=== PATIENT | male | born 1975 | race Caucasian/White ===

== ENCOUNTER → 2017-09-22 | Outpatient (CLI) | payer OTHER ==
--- NOTE | 2017-09-22 16:08 | US ---
EXAMINATION TYPE: US kidneys/renal and bladder DATE OF EXAM: 09/22/2017 COMPARISON: CT aorta: Aorta October 10, 2015 CLINICAL HISTORY: R80.9 protein urea unspecified; diabetic EXAM MEASUREMENTS: Right Kidney: 13.1 x 7.8 x 5.9 cm Left Kidney: 13.6 x 6.5 x 6.8 cm Post Void Residual Volume: 1.2 mL Right Kidney: No hydronephrosis or masses seen Left Kidney: No hydronephrosis or masses seen Bladder: not fully distended Bilateral Jets seen: Yes Normal Post Void Residual: Yes There is no evidence for hydronephrosis at this point in time. No nephrolithiasis is seen. No sukumar s are identified. The urinary bladder is not greatly distended and is thought suboptimally evaluated . Bilateral ureteral jets are however seen. IMPRESSION: No hydronephrosis is evident bilaterally.
== END | disposition home or self-care (01) ==
LOC: RADUSWWP 14:57
PROVIDERS: ATTEND Family Medicine
DX: R80.9 Proteinuria, unspecified (principal)
CPT/HCPCS: 76770

== ENCOUNTER → 2017-10-30 | Outpatient (CLI) | payer OTHER ==
--- NOTE | 2017-10-30 14:27 | PN ---
PROGRESS NOTE DATE OF SERVICE: 10/30/2017 42-year-old gentleman who has been followed in the Sleep Center for treatment of obstructive sleep apnea-hypopnea syndrome. Patient continued to use his CPAP equipment without significant problem every night for the whole night. No snoring with the machine. [place] Sleepiness Scale today is 7. I checked patient's CPAP unit. CPAP pressure is 15 cm of water. REM time in automatic regimen, usage is 100% of the time more than 4 hours. Average usage is 8.8 hours. Leak is 20 L/minute which is acceptable. Apnea-hypopnea index reading for the last month is only 0.9, which is perfect. MEDICATIONS: Metformin, Apidra, Lantus, Sertraline, Atenolol, hydrochlorothiazide, amlodipine, Glimepiride. Norvasc. Zoloft occasionally. PHYSICAL EXAM: Patient in no distress. BP 158/88, HR 56, RR 16, height 5 feet 11 inches. Weight 348, which is the same weight as during previous visit 1-1/2 year ago, BMI 48.5, temperature 98.5, oxygen saturation room air 98%. Oropharynx extremely low position of soft palate. ABDOMEN: Obese. Neck Supple, no JVD. Thyroid is not palpable. LUNGS Clear to percussion and to auscultation. Good air exchange. No wheezing or rhonchi. HEART S1, S2 regular. No murmurs, gallops, or rubs. ABDOMEN: Obese. Soft and nontender. Bowel sounds are present. No organomegaly appreciated. EXTREMITIES No clubbing or cyanosis. MOTOR BLOCK MECHANIC Awake, alert, and oriented X3. Cranial nerves 2 to 7 intact. There is no fasciculation or atrophy. noted. No focal deficits observed. IMPRESSION: 1. Obstructive sleep apnea-hypopnea syndrome, on full control with CPAP at 15 cm of water. The patient demonstrated 100% compliance with treatment benefitting from treatment. 2. Obesity. 3. Diabetes mellitus. 4. Hypertension. 5. Hyperlipidemia. 6. History of depression. 7. History of anxiety. PLAN: 1. Patient will continue to use CPAP equipment every night for the whole night. 2. Aggressive losing weight program. 3. Sleep hygiene in time for at least 8 hours. 4. No driving if feeling sleepiness. 5. Prescription for all necessary CPAP supplies including nasal mask, tube, filters. Thank you very much for allowing me to participate in management of your patient. Sincerely, Followup visit in 1 year or earlier if patient has any problems. Jersey Aguayo MD, PhD, FAASM Diplomat of [place] [employer] [place] [employer] Outside Maintenance Worker of [facility] [place] MMODL / ANANDA: [id number] /
== END | disposition home or self-care (01) ==
LOC: SLEEP 13:12
PROVIDERS: ATTEND Internal Medicine
DX: G47.33 Obstructive sleep apnea (adult) (pediatric) (principal); E66.9 Obesity, unspecified; E11.9 Type 2 diabetes mellitus without complications; I10 Essential (primary) hypertension; E78.5 Hyperlipidemia, unspecified; Z86.59 Personal history of other mental and behavioral disorders; Z79.84 Long term (current) use of oral hypoglycemic drugs; Z79.899 Other long term (current) drug therapy; Z99.89 Dependence on other enabling machines and devices

== ENCOUNTER → 2018-02-16 | Outpatient (CLI) | payer OTHER ==
--- NOTE | 2018-02-17 10:42 | ECHOF ---
Referral Reason:I77.810 Thoracic aortic ectasia MEASUREMENTS -------- HEIGHT: 182.9 cm WEIGHT: 149.7 kg BP: RVIDd: 3.7 cm (< 3.3) IVSd: 1.3 cm (0.6 - 1.1) LVIDd: 5.4 cm (3.9 - 5.3) LVPWd: 1.3 cm (0.6 - 1.1) IVSs: 2.0 cm LVIDs: 2.5 cm LVPWs: 2.0 cm LAESV Index (A-L): 30.99 ml/m Ao Diam: 4.2 cm (2.0 - 3.7) AV Cusp: 2.5 cm (1.5 - 2.6) LA Diam: 3.8 cm (2.7 - 3.8) MV E Kenton: 1.09 m/s MV DecT: 270 ms MV A Kenton: 0.76 m/s MV E/A Ratio: 1.44 RAP: 5.00 mmHg RVSP: 14.84 mmHg FINDINGS -------- Resting bradycardia (HR<60bpm). This was a technically adequate study. The left ventricular size is normal. There is borderline concentric left ventricular hypertrophy. Overall left ventricular systolic function is normal with, an EF between 55 - 60 %. The right ventricle is mildly enlarged. LA is midly dilated 29-33ml/m2. RA appears enlarged. There is mild aortic valve sclerosis. There is no evidence of aortic regurgitation. There is no e vidence of aortic stenosis. The mitral valve leaflets are mildly thickened. There is trace mitral regurgitation. Trace tricuspid regurgitation present. Right ventricular systolic pressure is normal at < 35 mmHg. There is no evidence of pulmonary hypertension. The pulmonic valve was not well visualized. The aortic root is mildy dilated, up to 3.9 cm. IVC Not well visulized. There is no pericardial effusion. CONCLUSIONS -------- 1. Resting bradycardia (HR<60bpm). 2. This was a technically adequate study. 3. The left ventricular size is normal. 4. There is borderline concentric left ventricular hypertrophy. 5. Overall left ventricular systolic function is normal with, an EF between 55 - 60 %. 6. The right ventricle is mildly enlarged. 7. LA is midly dilated 29-33ml/m2. 8. RA appears enlarged. 9. There is mild aortic valve sclerosis. 10. The mitral valve leaflets are mildly thickened. 11. There is trace mitral regurgitation. 12. Trace tricuspid regurgitation present. 13. Right ventricular systolic pressure is normal at < 35 mmHg. 14. There is no evidence of pulmonary hypertension. 15. The pulmonic valve was not well visualized. 16. The aortic root is mildy dilated, up to 3.9 cm. 17. IVC Not well visulized. 18. There is no pericardial effusion. REAL ESTATE RENTAL AGENT: Cm Ortega RDCS
== END | disposition home or self-care (01) ==
LOC: RADECHMAIN 15:06
PROVIDERS: ATTEND Internal Medicine Interventional Cardiology
DX: I08.0 Rheumatic disorders of both mitral and aortic valves (principal); I77.810 Thoracic aortic ectasia
CPT/HCPCS: 93306

== ENCOUNTER → 2018-03-19 | Outpatient (CLI) | payer OTHER ==
[2018-03-19 17:24] LABS: HCT 43.2 % (39.0-53.0); HGB 14.5 gm/dL (13.0-17.5); MCH 27.5 pg (25.0-35.0); MCHC 33.6 g/dL (31.0-37.0); MCV 81.9 fL (80.0-100.0); Mean Platelet Volume 6.6; Platelet Count 260 k/uL (150-450); RBC 5.28 m/uL (4.30-5.90); RDW 13.6 % (11.5-15.5); WBC 7.2 k/uL (3.8-10.6)
[2018-03-19 17:26] LABS: Appearance,Urine Clear (Clear); Bilirubin,Urine Negative (Negative); Blood,Urine Negative (Negative); Color,Urine Yellow; Glucose,Urine (UA) 1+ (Negative); Ketones,Urine Negative (Negative); Leukocyte Esterase,Urine Negative (Negative); Mucus,Urine Rare /hpf; Nitrite,Urine Negative (Negative); Protein,Urine 3+ (Negative); RBC,Urine <1 /hpf (0-5); Specific Gravity,Urine 1.017 (1.001-1.035); Urobilinogen,Urine <2.0 mg/dL (<2.0); WBC,Urine 1 /hpf (0-5)
[2018-03-19 17:33] LABS: Albumin 4.5 g/dL (3.5-5.0); Calcium 10.2 mg/dL (8.4-10.2); Magnesium 1.9 mg/dL (1.6-2.3); Phosphorus 3.8 mg/dL (2.5-4.5); Potassium 4.8 mmol/L (3.5-5.1); Uric Acid 5.5 mg/dL (3.5-8.5)
[2018-03-20 02:05] LABS: Hemoglobin A1C 8.4 % (4.0-6.0)
== END | disposition home or self-care (01) ==
LOC: LABWHC1 16:58
PROVIDERS: ATTEND Nurse Practitioner Family
DX: E11.22 Type 2 diabetes mellitus with diabetic chronic kidney disease (principal); N18.3 Chronic kidney disease, stage 3 (moderate)
CPT/HCPCS: 36415; 80048; 81001; 82040; 83036; 83735; 84100; 84550; 85027

== ENCOUNTER → 2018-04-04 | Outpatient (CLI) | payer OTHER ==
[2018-04-04 11:51] LABS: Basophils # (A) 0.1 k/uL (0-0.2); Basophils % (A) 1 %; Eosinophils # (A) 0.4 k/uL (0-0.7); Eosinophils % (A) 6 %; HGB 14.4 gm/dL (13.0-17.5); Lymphocytes # (A) 1.7 k/uL (1.0-4.8); Lymphocytes % (A) 25 %; MCHC 33.5 g/dL (31.0-37.0); MCV 83.6 fL (80.0-100.0); Monocytes # (A) 0.4 k/uL (0-1.0); Monocytes % (A) 6 %; Neutrophils # (A) 3.9 k/uL (1.3-7.7); Neutrophils % (A) 60 %; Platelet Count 225 k/uL (150-450); RBC 5.15 m/uL (4.30-5.90); RDW 13.9 % (11.5-15.5); WBC 6.6 k/uL (3.8-10.6)
[2018-04-04 12:02] LABS: Potassium 4.7 mmol/L (3.5-5.1)
[2018-04-04 12:15] LABS: INR 1.1 (<1.2); Prothrombin Time 10.4 sec (9.0-12.0)
== END | disposition home or self-care (01) ==
LOC: LABWHC1 11:19
PROVIDERS: ATTEND Internal Medicine
DX: R80.9 Proteinuria, unspecified (principal)
CPT/HCPCS: 36415; 80051; 82565; 84520; 85025; 85610; 85730

== ENCOUNTER → 2018-04-07 | Day surgery (SDC) | payer OTHER ==
[2018-04-07 09:33] VITALS: TEMP 98.4
[2018-04-07 09:39] LABS: Mean Platelet Volume 6.4; Platelet Count 225 k/uL (150-450)
[2018-04-07 09:51] LABS: INR 1.1 (<1.2); Prothrombin Time 10.4 sec (9.0-12.0)
[2018-04-07 12:06] VITALS: RESP 16
[2018-04-07 14:01] VITALS: PULSE 52
--- NOTE | 2018-04-07 14:01 | CT ---
DATE OF EXAM: 04/07/2018 COMPARISON: NONE CT DLP: 1362 mGycm HISTORY: Proteinuria PROCEDURE: Maximal barrier technique was utilized. After informed consent, the skin overlying a suit able path to the left kidney was localized using CT guidance, the skin was prepped and draped. Lidoc lilliana was used for local anesthesia. A skin santiago made with a scalpel. Using CT guidance, a 17-gauge needle was advanced into in position at the lateral and inferior cortex of the left kidney where coax ial placement of an 18-gauge needle was used and core biopsy obtained. 4 passes made in total. Hemo stasis was achieved. There was no immediate complication and patient remained in stable condition. Specimen submitted to Pathology. IMPRESSION: Status post CT guided core biopsy of left renal cortex, pathology pending. This procedur e performed by the undersigned.
[2018-04-07 14:45] VITALS: BP 133/75
== END ==
LOC: RADPROMAIN 08:53
PROVIDERS: ATTEND Internal Medicine Nephrology
DX: E11.21 Type 2 diabetes mellitus with diabetic nephropathy (principal); N26.9 Renal sclerosis, unspecified; I12.9 Hypertensive chronic kidney disease with stage 1 through stage 4 chronic kidney disease, or unspecified chronic kidney disease; E11.22 Type 2 diabetes mellitus with diabetic chronic kidney disease; N18.9 Chronic kidney disease, unspecified
CPT/HCPCS: 36415; 77012; 85049; 85610; 86850; 86900; 86901

== ENCOUNTER → 2018-04-20 | Outpatient (CLI) | payer OTHER ==
[2018-04-20 14:42] LABS: HCT 42.2 % (39.0-53.0); MCH 27.9 pg (25.0-35.0); MCHC 33.1 g/dL (31.0-37.0); MCV 84.3 fL (80.0-100.0); Platelet Count 264 k/uL (150-450); RBC 5.01 m/uL (4.30-5.90); WBC 6.9 k/uL (3.8-10.6)
[2018-04-20 14:49] LABS: Appearance,Urine Clear (Clear); Bilirubin,Urine Negative (Negative); Blood,Urine Negative (Negative); Color,Urine Yellow; Glucose,Urine (UA) Negative (Negative); Hyaline Casts,Urine 1 /lpf (0-2); Ketones,Urine Negative (Negative); Leukocyte Esterase,Urine Negative (Negative); Mucus,Urine Rare /hpf; Nitrite,Urine Negative (Negative); Protein,Urine 3+ (Negative); RBC,Urine 1 /hpf (0-5); Specific Gravity,Urine 1.018 (1.001-1.035); Squamous Epithelial Cell,Urine <1 /hpf (0-4); Urobilinogen,Urine <2.0 mg/dL (<2.0); WBC,Urine 1 /hpf (0-5)
[2018-04-20 14:57] LABS: Albumin 4.6 g/dL (3.5-5.0); Calcium 10.1 mg/dL (8.4-10.2); Magnesium 1.8 mg/dL (1.6-2.3); Phosphorus 3.8 mg/dL (2.5-4.5); Potassium 4.7 mmol/L (3.5-5.1); Uric Acid 5.8 mg/dL (3.5-8.5)
[2018-04-20 19:23] LABS: Vitamin D 25 Hydroxy 34.4 ng/mL (30.0-100.0)
[2018-04-20 19:59] LABS: Parathyroid Hormone Intact 28.2 pg/mL (14.0-72.0)
== END ==
LOC: LABWHC1 14:17
PROVIDERS: ATTEND Nurse Practitioner Family
DX: E11.22 Type 2 diabetes mellitus with diabetic chronic kidney disease (principal); N18.3 Chronic kidney disease, stage 3 (moderate); E55.9 Vitamin D deficiency, unspecified; N25.81 Secondary hyperparathyroidism of renal origin; N39.0 Urinary tract infection, site not specified; M10.9 Gout, unspecified
CPT/HCPCS: 36415; 80048; 81001; 82040; 82306; 83036; 83735; 83970; 84100; 84550; 85027

== ENCOUNTER 2018-06-09 06:43 | Day surgery (SDC) | payer OTHER ==
[2018-06-04 14:17] VITALS: BMI 46.9
[~2018-06-09 06:43] MED LIST: LACTATED RINGERS 1,000 ML IV SCH
[2018-06-09 07:24] VITALS: RESP 16; TEMP 97
[2018-06-09 07:31] LABS: Glucose,Whole Blood 82 mg/dL (75-99)
[2018-06-09] MEDS ORDERED: LIDOCAINE 1% 20 ML VIAL (10MG/ML) FOR IV START INTRADERMA ONE (07:39)
[2018-06-09] MEDS ORDERED: PROPOFOL 10 MG/ML 20 ML VIAL IV ONE (07:51)
[2018-06-09] MEDS ORDERED: LIDOCAINE 1% INJ 10MG/ML (20 ML MDV) ONE (07:51)
--- NOTE | 2018-06-09 08:37 | P.PCN ---
Date of Procedure: 06/09/18 Procedure(s) Performed: Procedure: 1. Esophagogastroduodenoscopy and biopsy. 2. Colonoscopy and biopsy. Preoperative diagnosis: Gastroesophageal reflux disease and change in bowel habits. Postoperative diagnosis: 1. Mild antral gastritis. 2. Normal colonoscopy. 3. Biopsies obtained from the duodenum, antrum, esophagus and right colon. Preparation: HalfLytely prep. Sedation: Was provided by anesthesia. Brief clinical history: The patient is a 42-year-old male who I have evaluated in the office recently in regards to nonspecific abdominal symptoms and altered bowel function with intermittent diarrhea. He reported seeing blood at times when he wipes. He also gets heartburn as he gets older. He was diagnosed with diabetes mellitus around 9 years ago. He typically has one bowel movement daily and occasionally he is constipated not having a bowel movement for 2-3 days then he would have occasions with diarrhea as mentioned. This evaluation is to assess for esophagitis, complicated reflux disease, colon neoplasia or inflammation. Procedure: With the patient on his left lateral decubitus position and after informed consent and adequate sedation, I passed the Olympus-GIF 160 video upper endoscope through the cricopharyngeus down the esophagus. There was no definite hiatal hernia. GE junction was around 42-43 cm from the incisors. There was no erosions, ulcers, strictures or Garcia's esophagus. The endoscope was then passed into the stomach which was insufflated with air and inspected in detail including the retroflex view in the cardia. There was minimal mottling and erythema in the antrum but no ulcers or erosions. Pyloric channel, duodenal bulb, post bulbar area and descending duodenum appeared within normal limits. Because of his symptoms, I obtained multiple biopsies from the duodenum, antrum and esophagus then the endoscope was withdrawn and I then proceeded to perform the colonoscopy. Perianal area did not show any fissures or fistulas. There were no masses felt on digital rectal examination. The Olympus CFH 190LVideo colonoscope was then inserted in the rectum in the usual fashion and advanced to the cecum. The mucosa appeared healthy. No polyps or tumors were seen or any obvious diverticular disease or other pathology. Because of his symptoms, I obtained biopsies from the right colon. I retroflexed the endoscope in the rectum before the endoscope was withdrawn. Low-grade internal hemorrhoids were noted with no evidence of bleeding. The patient tolerated the procedure well. Plan: The patient was reassured. Will await biopsy results. Discussed dietary measures and measures for local care for hemorrhoids. Further plans will be made based on his course. I will keep you updated on his progress.
[2018-06-09 08:46] VITALS: BP 149/79; PULSE 47
[2018-06-09 08:51] LABS: Glucose,Whole Blood 110 mg/dL (75-99)
== END 2018-06-09 09:21 | disposition home or self-care (01) ==
LOC: ORWHC2ENDO 06:43
DX: K29.50 Unspecified chronic gastritis without bleeding (principal); K20.9 Esophagitis, unspecified; K64.8 Other hemorrhoids; I10 Essential (primary) hypertension; E78.5 Hyperlipidemia, unspecified; G47.33 Obstructive sleep apnea (adult) (pediatric); E11.9 Type 2 diabetes mellitus without complications; F39 Unspecified mood [affective] disorder; Z79.82 Long term (current) use of aspirin; Z79.4 Long term (current) use of insulin; Z79.51 Long term (current) use of inhaled steroids; Z79.899 Other long term (current) drug therapy
CPT/HCPCS: 88305; 45380; 43239; J2001; J2704

== ENCOUNTER → 2018-11-05 | Outpatient (CLI) | payer OTHER ==
--- NOTE | 2018-11-05 15:45 | SFUN ---
SLEEP CENTER FOLLOW UP NOTE DATE OF SERVICE: 11/05/2018 A 43-year-old gentleman who has been followed in the Sleep Center for treatment of obstructive sleep apnea-hypopnea syndrome. Patient successfully continued to use his CPAP equipment every night for the whole night without significant problems. No snoring with the machine. [place] Sleepiness Scale is 4. I checked his CPAP unit. Patient using it every night with average usage 8.6 hours per night. Pressure is 15 cm of water. Leak is quite significant at 38 L/minute. Apnea- hypopnea index is only 1.0, which is absolutely perfect. MEDICATIONS: Metformin, , Lantus, duloxetine, atenolol, hydrochlorothiazide, amlodipine, Zoloft, Actos, lisinopril. PHYSICAL EXAM: gentleman without distress, BP 136/81, HR 57, RR 16, height 5 foot 11-1/2 inches, weight 344 pounds, body mass index 47.3, temperature 97.8, oxygen saturation at room air 95%. OROPHARYNX: Extremely low position of soft palate. ABDOMEN: Obese. Neck Supple, no JVD. Thyroid is not palpable. LUNGS Clear to percussion and to auscultation. Good air exchange. No wheezing or rhonchi. HEART S1, S2 regular. No murmurs, gallops, or rubs. ABDOMEN Soft and nontender. Bowel sounds are present. No organomegaly appreciated. EXTREMITIES No clubbing or cyanosis. SAMPLE PROCESSOR Awake, alert, and oriented X3. Cranial nerves 2 to 7 intact. There is no fasciculation or atrophy. noted. No focal deficits observed. IMPRESSION: 1. Obstructive sleep apnea-hypopnea syndrome. Patient demonstrated 100% compliance with treatment, benefitting from treatment. 2. Obesity. 3. Diabetes mellitus. 4. Hypertension. 5. Hyperlipidemia. 6. History of anxiety. 7. History of depression. PLAN: 1. Patient will continue to use CPAP equipment every night for the whole night. 2. Prescription for all necessary CPAP supplies. 3. A prescription for chin strap to prevent possible opening mouth. 4. Losing weight. 5. No driving if feeling sleepiness. 6. Followup visit in 1 year or earlier if patient has any problems. Thank you very much for allowing me to participate in the management of your patient. Sincerely, Jersey Aguayo MD, PhD, FAASM Diplomat of [place] [employer] [place] [employer] Hospitality Services Manager of [facility] [place] MMODL / ANANDA: [phone] /
== END ==
LOC: SLEEP 14:30
PROVIDERS: ATTEND Internal Medicine
DX: G47.33 Obstructive sleep apnea (adult) (pediatric) (principal); E66.9 Obesity, unspecified; E11.9 Type 2 diabetes mellitus without complications; I10 Essential (primary) hypertension; E78.5 Hyperlipidemia, unspecified; F32.9 Major depressive disorder, single episode, unspecified; F41.9 Anxiety disorder, unspecified; Z99.89 Dependence on other enabling machines and devices; Z79.899 Other long term (current) drug therapy; Z79.84 Long term (current) use of oral hypoglycemic drugs

== ENCOUNTER → 2018-11-10 | Outpatient (CLI) | payer OTHER ==
--- NOTE | 2018-11-10 10:32 | CT ---
EXAMINATION TYPE: CT angio chest DATE OF EXAM: 11/10/2018 10:12 AM COMPARISON: 10/10/2015 HISTORY: Thoracic aortic aneurysm CT DLP: 980.9 mGycm Automated exposure control for dose reduction was used. CONTRAST: CTA scan of the thorax is performed with IV Contrast, patient injected with 80 mL of Isovue 370, pulm onary embolism protocol. . FINDINGS: LUNGS: The lungs are grossly clear, there is no concerning parenchymal mass or nodule identified. T here is no pleural effusion or pneumothorax seen. The tracheobronchial tree is patent. 4 mm upper lo be pulmonary nodule appears calcified compatible granuloma. MEDIASTINUM: There is satisfactory enhancement of the pulmonary artery and its branches, there is no CT evidence for pulmonary embolism. There are no greater than 1 cm hilar or mediastinal lymph nodes. No pericardial effusion is seen. The heart is enlarged. VASCULATURE: The aortic root measures 4.0 x 3.9 cm measured on coronal and sagittal series, respectiv lili. The mid ascending aorta measures 3.6 x 3.6 cm. The proximal aortic arch measures 3.2 x 3.2 cm. T he upper descending thoracic aorta measures 2.9 x 2.8 cm. The mid descending thoracic aorta measures 2.8 x 2.7 cm. The aorta at the diaphragmatic hiatus measures 2.5 x 2.4 cm. The upper abdominal aorta measures 2.3 x 2.3 cm. Aorta at the level of the renal arteries measures 1.9 x 1.9 cm. Distal abdomin al aorta measures 1.9 x 1.8 cm. Right and left common iliac arteries measure 1.3 cm each. OTHER: Hypertrophic and degenerative change of the spine.. IMPRESSION: 1. STABLE APPEARANCE OF THE AORTA. PREVIOUSLY DESCRIBED IS BORDERLINE ANEURYSM 2. CALCIFIED GRANULOMA LEFT UPPER LOBE.
== END | disposition home or self-care (01) ==
LOC: RADCTMAIN 08:13
PROVIDERS: ATTEND Internal Medicine Interventional Cardiology
DX: J84.10 Pulmonary fibrosis, unspecified (principal)
CPT/HCPCS: 82565; 84520; 71275; 36415; Q9967

== ENCOUNTER → 2020-03-10 | Outpatient (CLI) | payer OTHER ==
--- NOTE | 2020-03-10 18:46 | XR ---
EXAMINATION TYPE: XR femur RT DATE OF EXAM: 03/10/2020 CLINICAL HISTORY: Pain TECHNIQUE: Two views of the right femur are obtained. COMPARISON: None FINDINGS: There is no acute fracture or dislocation seen in the right femur. There is narrowing of t he medial compartment of the knee joint and right hip joint with hypertrophic change of the acetabulu m. Soft tissue calcifications or ossifications are seen medially. Spur extending off the greater troc hanter noted. IMPRESSION: 1. Severe right hip arthropathy correlate for femoral acetabular impingement. 2. Greater trochanter spur can be associated with femoral acetabular impingement. 3. Arthropathy of the knee
--- NOTE | 2020-03-10 18:47 | XR ---
EXAM TYPE: LUMBAR SPINE X RAY SERIES COMPARISON: NONE HISTORY: Pain TECHNIQUE: 4 views are submitted. FINDINGS: Alignment is anatomic. The pedicles are intact. The transverse processes are intact. There is no s pondylolysis or spondylolisthesis. Extensive hypertrophic spurring noted anteriorly with multilevel moderate degenerative disc disease and facet arthropathy. Severe facet changes at L5-S1. IMPRESSION: 1. Multilevel severe degenerative disc disease and facet arthropathy.
--- NOTE | 2020-03-10 21:47 | XR ---
EXAMINATION TYPE: XR Hip Complete RT DATE OF EXAM: 03/10/2020 COMPARISON: NONE HISTORY: Pain TECHNIQUE: 2 views submitted FINDINGS: There is no evidence of erosive change or acute fracture. Greater trochanter spur noted and there is severe narrowing of the superior compartment of the joint space. Hypertrophic changes of the acetabul um. Soft tissue calcifications noted. IMPRESSION: 1. Severe arthropathy correlate for femoral acetabular impingement. 2. Greater trochanter spur can be associated with trochanteric bursitis. Correlate clinically.
== END | disposition home or self-care (01) ==
LOC: RAD 17:23
PROVIDERS: ATTEND Family Medicine
DX: M12.851 Other specific arthropathies, not elsewhere classified, right hip (principal); M12.861 Other specific arthropathies, not elsewhere classified, right knee; G89.29 Other chronic pain; M51.36 Other intervertebral disc degeneration, lumbar region; M47.897 Other spondylosis, lumbosacral region
CPT/HCPCS: 72110; 73502

== ENCOUNTER → 2021-02-14 | Outpatient (CLI) | payer OTHER ==
--- NOTE | 2021-02-14 23:26 | SFUN ---
SLEEP CENTER FOLLOW UP NOTE DATE OF SERVICE: 02/14/2021 45-year-old gentleman has been followed in the Sleep Center for treatment of obstructive sleep apnea-hypopnea syndrome. Patient continued to use his CPAP equipment every night. I did not see him since beginning of 2018. No snoring with the machine. [place] Sleepiness Scale today is 7. I checked his CPAP unit. CPAP pressure is 15, usage 29/30 nights for more than 4 hours, average 12 hours per night, leak is 20 L/minute which is borderline. Apnea- hypopnea index is 1.2, which is totally normal. MEDICATIONS: insulin, Victoza, metformin, Actos, duloxetine, atenolol, Xanax, aspirin. PHYSICAL EXAMINATION: GENERAL: Patient in no distress. BP 134/75, HR 68, RR 18, height 5 feet 11-1/2 inches, weight 385.4, BMI 52.9. The patient increased his weight on about 40 pounds since previous visit. Oxygen saturation at room air 96%. HEENT: Oropharynx: Extremely low position of soft palate. Mallampati 4. NECK: Supple, no JVD. Thyroid is not palpable. LUNGS: Clear to percussion and to auscultation. Good air exchange. No wheezing or rhonchi. HEART: S1, S2 regular. No murmurs, gallops, or rubs. ABDOMEN: Obese. Soft and nontender. Bowel sounds are present. No organomegaly appreciated. EXTREMITIES: No clubbing or cyanosis. GOLF COURSE KEEPER: Awake, alert, and oriented X3. Cranial nerves 2 to 7 intact. There is no fasciculation or atrophy. noted. No focal deficits observed. IMPRESSION: 1. Obstructive sleep apnea-hypopnea syndrome. Patient demonstrated great compliance with treatment benefitting from treatment. 2. Morbid obesity. Patient increased his weight on about 40 pounds since previous visit. 3. Diabetes mellitus. 4. Hypertension. 5. Hyperlipidemia. 6. History of anxiety. 7. History of depression. PLAN: 1. Patient will continue to use PAP equipment every night for the whole night. 2. Sleep hygiene with regular time in bed for at least 7-1/2 to 8 hours. 3. Precautions related to driving. No driving if feeling sleepiness. 4. I will maintain all necessary prescription for PAP supplies including mask, tube, filters. 5. Watching weight. 6. Follow-up visit in 6 months or earlier if patient has any problems. Thank you very much for allowing me to participate in management of your patient. Sincerely, Jersey Aguayo MD, PhD, FAASM Diplomat of [place] [employer] Sleep Medicine Board of [place] [employer] Product Consultant of [facility] [place] ROZINA / ANANDA: [phone] /
== END ==
LOC: SLEEP 09:05
PROVIDERS: ATTEND Internal Medicine
DX: G47.33 Obstructive sleep apnea (adult) (pediatric) (principal); E66.01 Morbid (severe) obesity due to excess calories; I10 Essential (primary) hypertension; E78.5 Hyperlipidemia, unspecified; F41.9 Anxiety disorder, unspecified; E11.9 Type 2 diabetes mellitus without complications; F32.9 Major depressive disorder, single episode, unspecified; Z68.43 Body mass index [BMI] 50.0-59.9, adult; Z99.89 Dependence on other enabling machines and devices; Z79.4 Long term (current) use of insulin

== ENCOUNTER → 2021-12-27 | Outpatient (CLI) | payer OTHER ==
--- NOTE | 2021-12-27 14:42 | SFUN ---
SLEEP CENTER FOLLOW UP NOTE DATE OF SERVICE: 12/27/2021 This 46-year-old gentleman has been followed in Sleep Center for treatment of obstructive sleep apnea-hypopnea syndrome. The patient continues to use CPAP equipment every night for the whole night and is getting his CPAP supplies on time. [place] Sleepiness Scale is 10, which is borderline. I checked his CPAP unit. Pressure is 15 cm of water. Usage is 30/30 nights for more than 4 hours, average usage 10.6 hours per night. Leak is borderline, 17 L/minute. Apnea-hypopnea index is 1.1, which is normal. MEDICATIONS: Alprazolam 0.5 mg up to 3 times a day, armodafinil 150 mg once a day, hydrochlorothiazide 25 mg once a day, Baclofen 10 mg once a day, Allopurinol 100 mg once a day, Rosuvastatin 20 mg once a day, Atenolol 25 mg twice a day, amlodipine 5 mg twice a day, Aripiprazole 5 mg once a day, aspirin 81 mg once a day, Trulicity 4.5 mg once a week, Duloxetine mg twice a day, Lisinopril 30 mg once a day, Fenofibrate 145 mg once a day, Humulin 500 units, metformin 500 mg once a day. PHYSICAL EXAMINATION: GENERAL: Pleasant patient in no distress. VITAL SIGNS: BP 145/83, HR 76, RR 16, height 5 feet 11-1/2 inches, weight 388 pounds, body mass index 53.3, temperature 98.6, oxygen saturation at room air 95%. HEENT: PERRLA, EOMI, evaluation of oropharynx showed tongue protrudes midline. Extremely low position of soft palate; Mallampati IV. NECK: Supple, no JVD. Thyroid is not palpable. LUNGS: Clear to percussion and to auscultation. Good air exchange. No wheezing or rhonchi. HEART: S1, S2 regular. No murmurs, gallops, or rubs. ABDOMEN: Obese. EXTREMITIES: No clubbing or cyanosis. REFRIGERATION SYSTEMS INSTALLER: Awake, alert, and oriented X3. Cranial nerves 2 to 7 intact. There is no fasciculation or atrophy. noted. No focal deficits observed. IMPRESSION: 1. Obstructive sleep apnea-hypopnea syndrome. Patient demonstrated 100% compliance with treatment, benefitting from treatment. 2. Morbid obesity; body mass index 53.3. 3. Diabetes mellitus. 4. Hypertension. 5. Hyperlipidemia. 6. History of anxiety. 7. History of depression. PLAN: 1. Patient will continue to use PAP equipment every night for the whole night. 2. Sleep hygiene with regular time in bed for at least 7-1/2 to 8 hours. 3. Precautions related to driving. No driving if feeling sleepiness. 4. I will maintain all necessary prescription for PAP supplies including mask, tube, filters. 5. Watching weight. 6. Follow-up visit in 6 months or earlier if patient has any problems. Thank you very much for allowing me to participate in the management of your patient. Sincerely, Jersey Aguayo MD, PhD, FAASM Diplomat of [place] [employer] Specialties Sleep Medicine Board of [employer] [place] Board of Internal Medicine Supervisor Pre [facility] of [facility] [place] MMODL / ESTHERN: [id number] /
== END ==
LOC: SLEEP 10:15
PROVIDERS: ATTEND Internal Medicine
DX: G47.33 Obstructive sleep apnea (adult) (pediatric) (principal); E66.01 Morbid (severe) obesity due to excess calories; Z68.43 Body mass index [BMI] 50.0-59.9, adult; I10 Essential (primary) hypertension; E78.5 Hyperlipidemia, unspecified; F41.9 Anxiety disorder, unspecified; F32.A Depression, unspecified; E11.9 Type 2 diabetes mellitus without complications; Z99.89 Dependence on other enabling machines and devices; Z79.84 Long term (current) use of oral hypoglycemic drugs; Z79.4 Long term (current) use of insulin; Z79.899 Other long term (current) drug therapy

== ENCOUNTER → 2022-03-11 | Outpatient (CLI) | payer OTHER ==
--- NOTE | 2022-03-11 14:46 | XR ---
EXAMINATION TYPE: XR knee complete LT DATE OF EXAM: 03/11/2022 1:14 PM INDICATION: Patient age:Male; 46 years old; Reason for study: M25.562 Lt Knee Pain, M25.559 Hip Pain; COMPARISON: None. TECHNIQUE: The Left knee(s) was examined in frontal, lateral, and oblique projections. FINDINGS: No evidence of any acute osseous pathology, soft tissue swelling, or joint effusion. Tric ompartmental joint space narrowing most pronounced involving the patellofemoral and medial tibiofemor al joints. There is sclerosis with osteophytosis noted. IMPRESSION: 1. No acute osseous pathology. 2. Moderate tricompartmental osteoarthritic changes.
--- NOTE | 2022-03-11 15:57 | XR ---
EXAMINATION TYPE: XR Hip Bilateral Complete DATE OF EXAM: 03/11/2022 1:14 PM INDICATION: Patient age:Male; 46 years old; Reason for study: M25.562 LT Knee Pain, M25.559 Hip Pain; COMPARISON: Right hip radiograph 03/10/2020. TECHNIQUE: Both hips were examined in the frontal and lateral projections. FINDINGS: No evidence of any acute osseous pathology, joint dislocation, or soft tissue swelling. Chacho ateral greater trochanter spurring noted. There is joint space narrowing bilaterally. Hypertrophic ch anges of the acetabulum bilaterally. Soft tissue calcifications bilaterally. IMPRESSION: * No acute osseous pathology. * Moderate osteoarthritic changes bilaterally. * Bilateral greater trochanteric spurring which can be associated with trochanteric bursitis. Correl ate clinically.
--- NOTE | 2022-03-11 17:54 | XR ---
EXAMINATION TYPE: XR femur LT DATE OF EXAM: 03/11/2022 1:15 PM INDICATION: Patient age:Male; 46 years old; Reason for study: M250.562,G89.29,M25.552; COMPARISON: Left knee radiographs and bilateral hip radiographs of the same date. TECHNIQUE: The left femur was examined in frontal and lateral projections. FINDINGS: No evidence of acute osseous pathology, joint dislocation, or soft tissue swelling. Spurri ng of the greater trochanter. Joint space narrowing involving the left hip. Tricompartmental joint sp shalini narrowing of the knee with osteophytosis. Soft tissue calcifications noted. IMPRESSION: * No acute osseous pathology. * Osteoarthritic changes of the left hip and knee.
== END | disposition home or self-care (01) ==
LOC: RADXRMAIN 12:40
PROVIDERS: ATTEND Family Medicine
DX: M17.12 Unilateral primary osteoarthritis, left knee (principal); M70.62 Trochanteric bursitis, left hip
CPT/HCPCS: 73521

== ENCOUNTER → 2022-07-04 | Outpatient (CLI) | payer OTHER ==
--- NOTE | 2022-07-04 11:48 | P.PN ---
Subjective DATE: 07/04/2022 FOLLOW UP VISIT. Patient with obstructive sleep apnea hypopnea syndrome return to sleep center for follow-up visit. Information from previous visit have been reviewed. Patient is using PAP equipment every night for the whole night, getting PAP supplies in time. The patient does not have significant problems with the mask, PAP unit and humidification. [place] sleepiness scale is 10, which is borderline. I checked information from PAP unit. PAP unit pressure 15 cm H2O. Usage is 100 % for more then 4 hours, average 10.6 hours per night. Leak is 8 l/m, which is in acceptable range. Apnea Hypopnea Index is 0.9, which is normal. CPAP unit is old motor live expectancy have been exceeded. MEDICATIONS:1. Alprazolam 0.5 mg up to 3 times a day 2. Armodafinil 150 mg once a day 3. Hydrochlorothiazide 25 mg once a day 4. Allopurinol 100 mg once a day 5. Rosuvastatin 40 mg once a day 6. Atenolol 25 mg twice a day 7. Amlodipine 5 mg twice a day 8. Lisinopril 30 mg once a day Metformin, fenofibrate, insulin, duloxetine, aspirin During physical exam: GENERAL: A pleasant patient without any distress. VITAL SIGNS: BP 172/97, HR 64, RR 16 , weight 385, body mass index 52.9, temperature 98.3, oxygen saturation at room air 98 % . HEENT: PERRLA, EOMI.low position of soft palate, Mallapati 4 . NECK: Supple. No JVD. LUNGS: Clear to percussion and to auscultation. Good air exchange. No wheezing or rhonchi. HEART: S1, S2 regular. ABDOMEN: Soft and nontender. Obese EXTREMITIES: No clubbing or cyanosis. SURGICAL ASSISTANT CERTIFIED: Awake, alert, and oriented x3. No focal deficit. Impressions: 1. Obstructive sleep apnea-hypopnea syndrome. Patient demonstrated great compliance with treatment, benefiting from treatment. CPAP unit is old. 2. Obesity, body mass index 52.9. 3. Diabetes mellitus. 4. Hypertension. 5. Hyperlipidemia. 6. History of anxiety. 7. History of depression. 8. []. 9. []. 10. []. 11.[]. 12.[]. Plan: 1. Continue using PAP equipment every night for the whole night. Prescription to replace CPAP unit to AutoPAP with pressure range 7-15 cm of water 2. To change air filter at least 1-2 times per month. 3. PAP unit should stay lower then position of the head. 4. Advised patient to remove all remaining water from humidifier canister daily and make it dry after each usage. Refill canister with fresh distilled water before each usage. 5. Sleep hygiene with regular time in bed for at least 8 hours. 6. Precautions related to driving. No driving if feel any sleepiness. 7. I will maintain prescription for PAP supplies including mask, tube, filters. 8. Follow up visit in 1-2 months after patient will get new CPAP machine. 9. Watching and aggressive losing weight. Thank you very much for allowing me to participate in the management of your patient. Jersey Aguayo MD, PhD, FAASM. Diplomat of [employer], Sleep Medicine Board by [employer] Director [facility]patient [facility] of [facility] [place]
== END ==
LOC: SLEEP 10:40
PROVIDERS: ATTEND Internal Medicine
DX: G47.33 Obstructive sleep apnea (adult) (pediatric) (principal); Z99.89 Dependence on other enabling machines and devices; E11.9 Type 2 diabetes mellitus without complications; Z79.84 Long term (current) use of oral hypoglycemic drugs; Z79.899 Other long term (current) drug therapy; I10 Essential (primary) hypertension; E78.5 Hyperlipidemia, unspecified; Z86.59 Personal history of other mental and behavioral disorders
CPT/HCPCS: 99212

== ENCOUNTER → 2022-08-16 | Outpatient (CLI) | payer OTHER ==
--- NOTE | 2022-08-16 08:45 | US ---
EXAMINATION TYPE: US kidneys/renal and bladder DATE OF EXAM: 08/16/2022 COMPARISON: Renal ultrasound 03/25/2022 CLINICAL HISTORY: N18.31 STAGE 3 CHR KIDNEY DISEASE. CKD 3 EXAM MEASUREMENTS: Right Kidney: 10.3 x 5.5 x 5.2 cm Left Kidney: 12.3 x 5.5 x 4.7 cm Right Kidney: No hydronephrosis or masses seen Left Kidney: No hydronephrosis or masses seen Bladder: wnl Bilateral Jets seen: Yes There is no evidence for hydronephrosis at this point in time. No nephrolithiasis is seen. Cortical medullary differentiation is maintained. No masses are identified. The urinary bladder is anechoic. Bilateral ureteral jets are seen. IMPRESSION: No hydronephrosis or shadowing renal calculi.
== END | disposition home or self-care (01) ==
LOC: RADUSWWP 08:03
PROVIDERS: ATTEND Internal Medicine
DX: N18.31 Chronic kidney disease, stage 3a (principal)
CPT/HCPCS: 76770

== ENCOUNTER → 2023-01-30 | Outpatient (CLI) | payer OTHER ==
--- NOTE | 2023-01-30 15:47 | P.PN ---
Subjective DATE: 01/30/2023 FOLLOW UP VISIT. Patient with obstructive sleep apnea hypopnea syndrome return to sleep center for follow-up visit. Information from previous visit have been reviewed. This is first visit after patient received new CPAP unit. Patient is using PAP equipment every night for the whole night, getting PAP supplies in time. The patient does not have significant problems with the mask, PAP unit and humidification. [place] sleepiness scale is 9. I checked information from PAP unit. PAP unit pressure 7-15, average 12.2 cm H2O. Usage is 100 % for more then 4 hours, average 10.5 hours per night. Leak is 10.1 l/m, which is in acceptable range. Apnea Hypopnea Index is 1.9, which is normal. MEDICATIONS:1. Lisinopril 2. Armodafinil 3. Hydrochlorothiazide 4. Allopurinol 5. Atenolol 6. Amlodipine 7. Rosuvastatin During physical exam: GENERAL: A pleasant patient without any distress. VITAL SIGNS: BP 130/76, HR 60, RR 18, weight 374.8, temperature 99.0, oxygen saturation at room air 95 % . HEENT: PERRLA, EOMI.low position of soft palate, Mallapati 4 . NECK: Supple. No JVD. LUNGS: Clear to percussion and to auscultation. Good air exchange. No wheezing or rhonchi. HEART: S1, S2 regular. ABDOMEN: Soft and nontender. Obese EXTREMITIES: No clubbing or cyanosis. BRANDING MACHINE OPERATOR: Awake, alert, and oriented x3. No focal deficit. Impressions: 1. Obstructive sleep apnea-hypopnea syndrome. Patient demonstrated great compliance with treatment, benefiting from treatment. 2. Obesity, patient lost 9 pounds since previous visit. 3. Diabetes mellitus. 4. Hypertension. 5. Hyperlipidemia. 6. History of depression. 7. History of anxiety. Plan: 1. Continue using PAP equipment every night for the whole night. 2. To change air filter at least 1-2 times per month. 3. PAP unit should stay lower then position of the head. 4. Advised patient to remove all remaining water from humidifier canister daily and make it dry after each usage. Refill canister with fresh distilled water before each usage. 5. Sleep hygiene with regular time in bed for at least 8 hours. 6. Precautions related to driving. No driving if feel any sleepiness. 7. I will maintain prescription for PAP supplies including mask, tube, filters. 8. Watching and losing weight. 9. Follow up visit in 6 months or earlier if patient has any problems. Thank you very much for allowing me to participate in the management of your patient. Jersey Aguayo MD, PhD, FAASM. Diplomat of [place] [employer], Sleep Medicine Board by [place] [employer] Manager [facility] [place]
== END ==
LOC: 3 N SLEEP 14:27
PROVIDERS: ATTEND Internal Medicine
DX: G47.33 Obstructive sleep apnea (adult) (pediatric) (principal); E11.9 Type 2 diabetes mellitus without complications; E78.5 Hyperlipidemia, unspecified; F32.A Depression, unspecified; F41.9 Anxiety disorder, unspecified; E66.9 Obesity, unspecified; I10 Essential (primary) hypertension; Z99.89 Dependence on other enabling machines and devices; Z79.899 Other long term (current) drug therapy; Z79.4 Long term (current) use of insulin; Z79.84 Long term (current) use of oral hypoglycemic drugs
CPT/HCPCS: 99212

== ENCOUNTER → 2024-02-20 | Outpatient (CLI) | payer OTHER ==
--- NOTE | 2024-02-20 17:21 | XR ---
EXAMINATION TYPE: XR Hip Bilateral Complete DATE OF EXAM: 02/20/2024 4:56 PM CLINICAL INDICATION:Male, 48 years old with history of M25.551 PAIN R HIP, M25.552 L HIP; [facility] COMPARISON: None. TECHNIQUE: XR Hip Bilateral Complete; hip was examined in the frontal and lateral projections FINDINGS: No evidence for acute process, joint dislocation or significant soft tissue swelling. Osteo phyte formation of the superior acetabulum of the hip. There is mild joint space narrowing. IMPRESSION: 1. No evidence for acute process. 2. Moderate hip osteoarthrosis.
== END | disposition home or self-care (01) ==
LOC: RADXRMAIN 16:30
PROVIDERS: ATTEND Family Medicine
DX: M16.0 Bilateral primary osteoarthritis of hip (principal)
CPT/HCPCS: 73521